=== PATIENT | female | born 1965 | race Caucasian/White ===

== ENCOUNTER 2024-09-15 20:12 | Emergency (ER) | payer MEDICAID, OTHER ==
[~2024-09-15] VITALS: Ht 154.9 cm; Wt 68.0 kg
[~2024-09-15 20:12] MED LIST: DICY10CA37 PO; LOPE2CAP PO; ONDA4TAB11 PO
[2024-09-15 21:36] LABS: APPEARANCE,URINE CLEAR (CLEAR); BLOOD, URINE TRACE-INTA Ery/uL (NEGATIVE); LEUKOCYTE ESTERASE ,URINE NEGATIVE (NEGATIVE); NITRITE, URINE NEGATIVE (NEGATIVE); UGLUCOSE NEGATIVE (NEGATIVE)
[2024-09-15 21:38] LABS: PLATELET COUNT (AUTO) 244 K/uL (150-450); RED BLOOD CELL COUNT(AUTO) 4.96 MIL/uL (4.0-5.2); RED CELL DISTRIBUTION WIDTH 14.6 % (11.5-15.0); WHITE BLOOD COUNT (AUTO) 13.1 K/uL (4.3-11.0)
[2024-09-15 21:40] LABS: CALCIUM, SERUM 9.8 mg/dL (8.5-10.1); CREATININE 1.0 mg/dL (0.6-1.3); SODIUM SERUM 138.0 mmol/L (136-145); UREA NITROGEN, BLOOD 12.0 mg/dL (7-18)
[2024-09-15 21:46] LABS: ASPARTATE AMINOTRANSFERASE 28.0 U/L (15-37); TOTAL PROTEIN, SERUM 7.9 g/dL (6.4-8.2)
[2024-09-15 21:48] LABS: ADD URINE CULTURE NO; SQUAMOUS EPITHELIAL CELL,UR 0-2 /HPF (None Seen)
[2024-09-15] MEDS ORDERED: DICYCLOMINE HCL 10 MG CAPSULE PO ONE ×2 (22:58→23:12)
[2024-09-15] MEDS ORDERED: ONDANSETRON HCL/PF 4 MG/2 ML VIAL ONE (22:58)
[2024-09-15] MEDS ORDERED: KETOROLAC TROMETHAMINE 15 MG/ML VIAL ONE (22:58)
[2024-09-15] MEDS ORDERED: PANTOPRAZOLE 40 MG VIAL ONE (22:58)
[2024-09-15] MEDS ORDERED: ONDA4TAB5 PO (23:02)
[2024-09-15] MEDS ORDERED: PANT40TA2 PO (23:02)
[2024-09-15] MEDS ORDERED: DICY10CA37 PO (23:02)
[2024-09-15] MEDS: DICYCLOMINE HCL 10 MG CAPSULE PO ONE (23:13)
[2024-09-15] MEDS: ONDANSETRON HCL/PF 4 MG/2 ML VIAL IV ONE (23:20)
[2024-09-15] MEDS: KETOROLAC TROMETHAMINE 15 MG/ML VIAL IV ONE (23:21)
[2024-09-15] MEDS: PANTOPRAZOLE 40 MG VIAL IV ONE (23:22)
[2024-09-16 03:25] VITALS: BP 120/84; TEMP 98; O2SAT 96
== END 2024-09-16 03:28 | disposition home or self-care (01) ==
LOC: ER 20:14
DX: K52.9 Noninfective gastroenteritis and colitis, unspecified (principal); R11.0 Nausea; Z60.2 Problems related to living alone; Z20.822 Contact with and (suspected) exposure to COVID-19
CPT/HCPCS: 99285; 74176; 96374; 96375; 71045; 87426; 93005; 85025; 80048; 83690; 80076; 81001; 36415; J1885; J2405; J2470